=== PATIENT | male | born 1990 | race Caucasian/White ===

== ENCOUNTER 2020-06-09 11:35 | Emergency (ER) | payer OTHER, BC ==
[2020-06-09 11:41] VITALS: BP 148/86; PULSE 73; TEMP 99.4; BMI 32.5
== END 2020-06-09 12:35 | disposition home or self-care (01) ==
LOC: FER 11:35
DX: S93.431A Sprain of tibiofibular ligament of right ankle, initial encounter (principal); X50.1XXA Overexertion from prolonged static or awkward postures, initial encounter
CPT/HCPCS: 73610-TC-RT-FY; 99283-25